=== PATIENT | male | born 1990 | race Two or more races ===

== ENCOUNTER 2016-11-22 04:41 | Emergency (ER) | payer SELFPAY ==
--- NOTE | 2016-11-22 05:33 | ED Physician Chart ---
Chief Complaint/HPI - Patient Information Date Seen:: 11/22/16 Time Seen:: 05:20 Chief Complaint:: pruritic rash History of Present Illness:: Patient has had a pruritic rash primarily on his arms and to a lesser extent on his legs the last 2-3 weeks. The rash does not involve the patient's face, neck or scalp. The rash may have started after the patient shared a blanket. The rash is worse at night. He does not know if the other person who used a blanket developed a similar rash. Allergies:: Allergies Allergy/AdvReac Type Severity Reaction Status Date / Time No Known Allergies Allergy Verified 11/22/16 04:59 Vitals:: Vital Signs - 8 hr 11/22/16 05:00 Temp 98.3 F HR 90 RR 18 BP 138/90 O2 Sat % 97 Historian:: Patient Review:: Nurse's Note Reviewed Review of Systems - Review of Systems General/Constitutional: No fever, No chills Skin: Skin lesions Head: Headache Eyes: Acuity change ENT: No earache Neck: No neck pain Cardio Vascular: No chest pain Pulmonary: No SOB GI: No nausea, No vomiting, No diarrhea G/U: No dysuria Musculoskeletal: No bone or joint pain, No back pain Endocrine: No polyuria, No polydipsia Psychiatric: No prior psych history Hematopoietic: No bruising, No lymphadenopathy Allergic/Immuno: No urticaria, No angioedema Neurological: No syncope, No focal symptoms, No weakness Past Medical History - Past Medical History Past Medical History: No significant medical hx Family History: None Social History: Smoker, Alcohol Surgical History: None Psychiatricy History: None Medication: None Family Medical History - Family Member Mother History Unknown: Yes Physical Exam - Physical Examination General/Constitutional: Well-developed, well-nourished, Alert, No distress Head: Atraumatic Eyes: Lids, conjuctiva normal, PERRL Other Skin comments:: Maculopapular rash most prominent on the upper extremities. There there are very small crusts on many of the lesions suggestive of scratching. The rash does not involve the face, neck or scalp ENMT: External ears, nose nl, TM canals nl, Nasal exam nl, Lips, teeth, gums nl Respiratory: Nl effort/Exclusion, Clear to Auscultation Cardio Vascular: RRR, No murmur, gallop, rubs GI: No tenderness/rebounding/guarding, No organomegaly, No hernia, Normal BS's : No CVA tenderness Extremities: No tenderness or effusion, Normal digits & nails Neuro/Psych: Alert/oriented, No focal deficits Misc: Normal back ED Septic Shock - . Is Septic Shock (SBP<90, OR Lactate>4 mmol\L) present?: No - <6hrs of presentation: Vital Signs: Vital Signs - 8 hr 11/22/16 05:00 Temp 98.3 F HR 90 RR 18 BP 138/90 O2 Sat % 97 Reassessment (Disposition) - Reassessment Reassessment Condition:: Unchanged - Diagnosis Diagnosis:: Scabies - Aftercare/Follow up Instructions Medication Prescribed:: Atarax 25 mg #20 to take 1 4 times a day; Elimite 60 g tube to apply per directions 1 refill - Patient Disposition Discharge/Transfer:: Home Condition at Disposition:: Stable, Unchanged
== END 2016-11-22 05:40 | disposition home or self-care (01) ==
LOC: ER 04:41
DX: B86 Scabies (principal); F17.200 Nicotine dependence, unspecified, uncomplicated
CPT/HCPCS: Z7502